=== PATIENT | female | born 1995 | race African-American/Black ===

== ENCOUNTER 2017-04-23 16:58 | Emergency (ER) | payer OTHER ==
--- NOTE | 2017-04-23 18:02 | ED ---
General Adult HPI - General Chief complaint: Recheck/Abnormal Lab/Rx Stated complaint: Test Time Seen by Provider: 04/23/17 17:21 Source: patient, RN notes reviewed Mode of arrival: ambulatory Limitations: no limitations - History of Present Illness Initial comments: Patient is a 21-year-old female presents to the emergency room for requested test. Patient states she can't afford a urine test so she came here. Patient is requesting a blood test to see if she is . Patient states she is one-week late on her menstrual cycle. Patient denies vaginal spotting. Patient denies abdominal pain. Patient denies nausea or vomiting. Patient denies headache or dizziness. Patient denies history of previous pregnancies. Patient denies any pain or burning during urination, trouble urinating or blood in urine. Patient denies taking any medications. - Related Data Previous Rx's Medication Instructions Recorded Ondansetron Odt [Zofran ODT] 4 mg PO Q8HR PRN #20 tab 07/10/16 Allergies Allergy/AdvReac Type Severity Reaction Status Date / Time No Known Allergies Allergy Verified 04/23/17 17:15 Review of Systems ROS Statement: Those systems with pertinent positive or pertinent negative responses have been documented in the HPI. ROS Other: All systems not noted in ROS Statement are negative. Past Medical History Past Medical History: No Reported History History of Any Multi-Drug Resistant Organisms: None Reported Past Surgical History: No Surgical Hx Reported Past Psychological History: Anxiety Smoking Status: Current every day smoker Past Alcohol Use History: None Reported Past Drug Use History: None Reported General Exam - General Exam Comments Initial Comments: Sitting in exam room, no acute distress. Limitations: no limitations General appearance: alert, in no apparent distress Head exam: Present: atraumatic, normocephalic, normal inspection Eye exam: Present: normal appearance ENT exam: Present: normal exam Neck exam: Present: normal inspection Respiratory exam: Present: normal lung sounds bilaterally. Absent: respiratory distress Cardiovascular Exam: Present: regular rate, normal rhythm, normal heart sounds GI/Abdominal exam: Present: soft, normal bowel sounds. Absent: distended, tenderness, guarding, rebound, rigid Extremities exam: Present: normal inspection Back exam: Present: normal inspection Neurological exam: Present: alert, oriented X3, CN II-XII intact, normal gait Psychiatric exam: Present: normal affect, normal mood Skin exam: Present: warm, dry, intact, normal color. Absent: rash Course Vital Signs 04/23/17 04/23/17 17:13 19:40 Temperature 98.1 F 97.8 F Pulse Rate 79 87 Respiratory 20 16 Rate Blood Pressure 118/69 121/68 O2 Sat by Pulse 99 99 Oximetry Medical Decision Making - Medical Decision Making Patient is a 21-year-old female presents to the emergency room for evaluation of test. Patient requested a blood test for . I did agree to urine test. Urine test is negative. Advised patient to follow-up with [facility]. Return parameters discussed. Case discussed with Dr. Arguelles. - Lab Data Lab Results 04/23/17 04/23/17 Range/Units 18:40 18:40 Urine Color Yellow Urine Appearance Cloudy H (Clear) Urine pH 5.5 (5.0-8.0) Ur Specific [place] 1.032 (1.001-1.035) Urine Protein 1+ H (Negative) Urine Glucose (UA) Negative (Negative) Urine Ketones Negative (Negative) Urine Blood Negative (Negative) Urine Nitrite Negative (Negative) Urine Bilirubin Negative (Negative) Urine Urobilinogen 2.0 (<2.0) mg/dL Ur Leukocyte Esterase Moderate H (Negative) Urine WBC 4 (0-5) /hpf Ur Squamous Epith Cells 18 H (0-4) /hpf Urine Mucus Few H (None) /hpf Urine HCG, Qual Not Detected (Not Detectd) Disposition Clinical Impression: Encounter for test Disposition: HOME SELF-CARE Condition: Good Additional Instructions: Please follow-up with [facility] or primary care provider. If any new symptom arises or symptoms worsen, return to ER as soon as possible. Referrals: Helena Velasquez DO [Primary Care Provider] - 1-2 days Time of Disposition: 19:37
[2017-04-23 18:58] LABS: Appearance,Urine Cloudy (Clear); Bilirubin,Urine Negative (Negative); Glucose,Urine (UA) Negative (Negative); Ketones,Urine Negative (Negative); Leukocyte Esterase,Urine Moderate (Negative); Mucus,Urine Few /hpf; Nitrite,Urine Negative (Negative); PH, Urine 5.5 (5.0-8.0); Particle Count 11512; Protein,Urine 1+ (Negative); Specific Gravity,Urine 1.032 (1.001-1.035); Squamous Epithelial Cell,Urine 18 /hpf (0-4); UA Billing (MACRO vs. MICRO) MICRO; WBC,Urine 4 /hpf (0-5)
[2017-04-23 19:48] VITALS: BP 121/68; PULSE 87; RESP 16; TEMP 97.8
== END 2017-04-23 19:40 | disposition home or self-care (01) ==
LOC: EC 16:58
DX: Z32.02 Encounter for pregnancy test, result negative (principal); F17.200 Nicotine dependence, unspecified, uncomplicated
CPT/HCPCS: 81001; 81025; 99282

== ENCOUNTER → 2017-12-29 | Outpatient (CLI) | payer OTHER ==
--- NOTE | 2017-12-29 16:54 | US ---
EXAMINATION TYPE: US transvaginal DATE OF EXAM: 12/29/2017 COMPARISON: NONE CLINICAL HISTORY: N92.1 irregular menses. cycles are lasting 3 days and very light, ongoing for a few months now TECHNIQUE: TV Date of LMP: 12/21/2017 EXAM MEASUREMENTS: Uterus: 6.9 x 2.7 x 3.2 cm Endometrial Stripe: 0.4 cm Right Ovary: 2.4 x 1.9 x 2.7 cm Left Ovary: 2.3 x 2.2 x 2.1 cm *patient was very tense during exam* 1. Uterus: Anteverted wnl 2. Endometrium: wnl 3. Right Ovary: follicles seen under 1cm 4. Left Ovary: follicles seen under 1cm 5. Bilateral Adnexa: wnl 6. Posterior cul-de-sac: wnl IMPRESSION: 1. No acute changes.
== END | disposition home or self-care (01) ==
LOC: RADUSWWP 16:16
PROVIDERS: ATTEND Family Medicine
DX: N92.1 Excessive and frequent menstruation with irregular cycle (principal)
CPT/HCPCS: 76830

== ENCOUNTER 2018-04-07 13:59 | Emergency (ER) | payer OTHER ==
[2018-04-07 14:18] VITALS: BP 108/64; PULSE 74; RESP 18; TEMP 98.6
--- NOTE | 2018-04-07 14:36 | ED ---
General Adult HPI - General Chief complaint: Upper Respiratory Infection Stated complaint: Upper Respiratory Infection Time Seen by Provider: 04/07/18 14:25 Source: patient Mode of arrival: ambulatory Limitations: no limitations - History of Present Illness Initial comments: This 22-year-old -[place] female presents with a complaint of some nasal congestion. It is been present for approximately one week. It has been associated with a cough which is worse when laying down flat. She's been taken some Tylenol sinus medication which does contain phenylephrine. She is instructed to stop taking this medication as it is class C. She denies any shortness of breath. She is approximately 7 weeks . She denies any known complications as far as but has not followed up with [employer] as of yet. She apparently has an appointment set up with [facility]. She denies any fevers or chills. She denies any other complaints or modifying factors. - Related Data Previous Rx's Medication Instructions Recorded Amoxicillin 500 mg PO Q8H #30 capsule 04/07/18 Allergies Allergy/AdvReac Type Severity Reaction Status Date / Time No Known Allergies Allergy Verified 04/07/18 14:18 Review of Systems ROS Statement: Those systems with pertinent positive or pertinent negative responses have been documented in the HPI. ROS Other: All systems not noted in ROS Statement are negative. Past Medical History Past Medical History: No Reported History History of Any Multi-Drug Resistant Organisms: None Reported Past Surgical History: No Surgical Hx Reported Past Psychological History: Anxiety Smoking Status: Current every day smoker Past Alcohol Use History: None Reported Past Drug Use History: None Reported General Exam - General Exam Comments Initial Comments: GENERAL: The patient is well nourished and well hydrated. VITAL SIGNS: Heart rate, blood pressure, respiratory rate reviewed as recorded in nurse's notes. EYES: Pupils are round and reactive. Extraocular movements are intact. No conjunctival / lid redness or swelling. ENT: No external evidence of injury, swelling, or ecchymosis. Airway is patent. Throat is clear. Moderate nasal congestion noted. NECK: Nontender. No swelling or evidence of injury. No subcutaneous emphysema. Trachea is midline. No thyroid mass. HEART: Regular rate and rhythm. Good peripheral pulses. LUNGS/CHEST: Breath sounds clear and equal bilaterally. No rales, rhonchi, or wheezes. No ecchymosis, subcutaneous emphysema, or tenderness. ABDOMEN: Abdomen soft without tenderness. No palpable masses or organomegaly. No peritoneal signs. No abdominal wall swelling or ecchymosis. EXTREMITIES: No extremity tenderness. Normal muscle tone and function. No thoracolumbar tenderness. NEUROLOGIC: Sensation is grossly intact. Cranial nerve exam reveals face is symmetrical, tongue is midline, speech is clear. SKIN: No abrasions or ecchymosis is noted. No induration or masses noted. PSYCHIATRIC: Alert and oriented. Appropriate behavior and judgment. Limitations: no limitations Course Vital Signs 04/07/18 14:15 Temperature 98.6 F Pulse Rate 74 Respiratory 18 Rate Blood Pressure 108/64 O2 Sat by Pulse 99 Oximetry Medical Decision Making - Medical Decision Making The patient was seen and examined. All diagnostics were reviewed. Appears that she does have a sinus infection. She will be treated for this. She is instructed to stop the Tylenol sinus and take Mucinex DM instead. She also may take Tylenol but she was instructed to avoid any ibuprofen or Naprosyn type containing products. She also will be prescribed some amoxicillin. Disposition Clinical Impression: Sinusitis, Disposition: HOME SELF-CARE Condition: Good Instructions: Sinusitis (ED), (ED) Additional Instructions: You should be able to take Mucinex DM safely during for cough and congestion. Prescriptions: Amoxicillin 500 mg PO Q8H #30 capsule Is patient prescribed a controlled substance at d/c from ED?: No Referrals: Helena Velasquez DO [Primary Care Provider] - 1-2 days Time of Disposition: 14:35
== END 2018-04-07 14:56 | disposition home or self-care (01) ==
LOC: EC 13:59
DX: O99.511 Diseases of the respiratory system complicating pregnancy, first trimester (principal); J32.9 Chronic sinusitis, unspecified; O99.331 Smoking (tobacco) complicating pregnancy, first trimester; F17.200 Nicotine dependence, unspecified, uncomplicated; Z3A.01 Less than 8 weeks gestation of pregnancy
CPT/HCPCS: 99283

== ENCOUNTER 2018-04-18 18:31 | Emergency (ER) | payer OTHER ==
--- NOTE | 2018-04-18 19:26 | ED ---
Female Urogenital HPI - General Chief complaint: Vaginal Bleeding Stated complaint: 9wks preg/spotting Time Seen by Provider: 04/18/18 19:07 Source: patient, RN notes reviewed, old records reviewed Mode of arrival: ambulatory Limitations: no limitations - History of Present Illness Initial comments: This Patient is a 22-year-old female presents to the emergency department today chief complaint of vaginal spotting. She reports she is approximately 8 weeks . She had an ultrasound earlier today at [facility] clinic. 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 Patient reports that she is having some left-sided abdominal cramping. Patient denies any dysuria, denies any nausea or vomiting. She reports that she had light spotting. This is her first . - Related Data Home Medications Medication Instructions Recorded Confirmed Pnv No.95/Ferrous Fum/Folic AC 1 tab PO BID 04/18/18 04/18/18 [ Multivitamin Tablet] Allergies Allergy/AdvReac Type Severity Reaction Status Date / Time No Known Allergies Allergy Verified 04/18/18 19:12 Review of Systems ROS Statement: Those systems with pertinent positive or pertinent negative responses have been documented in the HPI. ROS Other: All systems not noted in ROS Statement are negative. Past Medical History Past Medical History: No Reported History History of Any Multi-Drug Resistant Organisms: None Reported Past Surgical History: No Surgical Hx Reported Past Psychological History: Anxiety Smoking Status: Former smoker Past Alcohol Use History: None Reported Past Drug Use History: None Reported General Exam - General Exam Comments Initial Comments: 22-year-old female. Alert and oriented. No significant distress. Limitations: no limitations General appearance: alert, in no apparent distress Head exam: Present: atraumatic, normocephalic, normal inspection Eye exam: Present: normal appearance, PERRL, EOMI. Absent: scleral icterus, conjunctival injection, periorbital swelling ENT exam: Present: normal exam, mucous membranes moist Neck exam: Present: normal inspection. Absent: tenderness, meningismus, lymphadenopathy Respiratory exam: Present: normal lung sounds bilaterally. Absent: respiratory distress, wheezes, rales, rhonchi, stridor Cardiovascular Exam: Present: regular rate, normal rhythm, normal heart sounds. Absent: systolic murmur, diastolic murmur, rubs, gallop, clicks GI/Abdominal exam: Present: soft, normal bowel sounds. Absent: distended, tenderness, guarding, rebound, rigid Extremities exam: Present: normal inspection, full ROM, normal capillary refill. Absent: tenderness, pedal edema, joint swelling, calf tenderness Back exam: Present: normal inspection Neurological exam: Present: alert, oriented X3, CN II-XII intact Psychiatric exam: Present: normal affect, normal mood Skin exam: Present: warm, dry, intact, normal color. Absent: rash Course Vital Signs 04/18/18 18:36 Temperature 98.5 F Pulse Rate 101 H Respiratory 20 Rate Blood Pressure 111/68 O2 Sat by Pulse 100 Oximetry Medical Decision Making - Medical Decision Making 22-year-old female presents emergency room chief complaint of vaginal spotting. 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 patient states that since that she's been having some minor spotting. complains muscle cramping. repeat ultrasound shows evidence of iup 6 weeks. no evidence of demise. patient is a+ blood type. hcg level [id number]. pelvic exam shows no significant bleeding. discussed concern for possibility of a threatened miscarriage with responding. she'll repeat her hcg in 2 days. patient understands treatment plan will comply. return parameters were discussed. - Lab Data Lab Results 04/18/18 04/18/18 04/18/18 Range/Units 19:34 19:34 19:34 HCG, Quant 73848.4 mIU/mL Urine Color Urine Appearance (Clear) Urine pH (5.0-8.0) Ur Specific [place] (1.001-1.035) Urine Protein (Negative) Urine Glucose (UA) (Negative) Urine Ketones (Negative) Urine Blood (Negative) Urine Nitrite (Negative) Urine Bilirubin (Negative) Urine Urobilinogen (<2.0) mg/dL Ur Leukocyte Esterase (Negative) Urine RBC (0-5) /hpf Urine WBC (0-5) /hpf Ur Squamous Epith Cells (0-4) /hpf Urine Mucus (None) /hpf Urine HCG, Qual Detected (Not Detectd) Blood Type A Positive Blood Type Recheck No 04/18/18 Range/Units 19:34 HCG, Quant mIU/mL Urine Color Yellow Urine Appearance Clear (Clear) Urine pH 6.5 (5.0-8.0) Ur Specific [place] 1.025 (1.001-1.035) Urine Protein Trace H (Negative) Urine Glucose (UA) Negative (Negative) Urine Ketones Negative (Negative) Urine Blood Moderate H (Negative) Urine Nitrite Negative (Negative) Urine Bilirubin Negative (Negative) Urine Urobilinogen 2.0 (<2.0) mg/dL Ur Leukocyte Esterase Negative (Negative) Urine RBC <1 (0-5) /hpf Urine WBC 1 (0-5) /hpf Ur Squamous Epith Cells 1 (0-4) /hpf Urine Mucus Occasional H (None) /hpf Urine HCG, Qual (Not Detectd) Blood Type Blood Type Recheck - Radiology Data Radiology results: report reviewed Sounds a viable IUP. Correlating with of 6 weeks and 3 days. Estimated delivery was 12/09/2017. Heart rate was 154 Disposition Clinical Impression: Threatened Disposition: HOME SELF-CARE Condition: Good Instructions: Threatened Miscarriage (ED) Additional Instructions: Patient advised to follow-up and repeat lab work in 2 days. Return to emergency department if any alarming signs or symptoms occur. Is patient prescribed a controlled substance at d/c from ED?: No When asked, does pt state using other controlled substances?: No If prescribed controlled substance>3 days was MAPS reviewed?: No If opioid is for acute pain is fill amount 7 days or less?: No If Rx opioid, was Start Talking consent form obtained?: No Referrals: Helena Velasquez DO [Primary Care Provider] - 1-2 days Time of Disposition: 21:24
[2018-04-18 19:59] LABS: Appearance,Urine Clear (Clear); Bilirubin,Urine Negative (Negative); Blood,Urine Moderate (Negative); Color,Urine Yellow; Glucose,Urine (UA) Negative (Negative); Ketones,Urine Negative (Negative); Leukocyte Esterase,Urine Negative (Negative); Mucus,Urine Occasional /hpf; Nitrite,Urine Negative (Negative); PH, Urine 6.5 (5.0-8.0); Protein,Urine Trace (Negative); RBC,Urine <1 /hpf (0-5); Specific Gravity,Urine 1.025 (1.001-1.035); Squamous Epithelial Cell,Urine 1 /hpf (0-4); WBC,Urine 1 /hpf (0-5)
--- NOTE | 2018-04-18 20:34 | US ---
EXAMINATION TYPE: Transabdominal DATE OF EXAM: 02/21/18 COMPARISON: NONE CLINICAL HISTORY: Pain. Spotting and cramping. EXAM PERFORMED: Transabdominal (TA) EXAM MEASUREMENTS: GESTATIONAL AGE / DATING Physician Established: Not yet established Dates by LMP: (8 weeks/6 days) EDC: 11/22/2018 Dates by First Scan: No previous this is first scan Dates by Current Scan for: (6 weeks/3 days) EDC: 12/09/2018 MATERNAL ANATOMY Uterus: 8.4 x 5.0 x 7.0 cm Right Ovary: 2.9 x 2.0 x 2.2 cm Left Ovary: Obscured by overlying bowl gas. Post CDS / Adnexa: wnl Presence of free fluid: no Presence of corpus luteal cyst: no Presence of subchorionic bleed: no GESTATION / SURVEY CRL: 0.6cm (6 weeks/3 days) Yolk Sac (normal less than 6mm): 4 mm Heart Rate: 154 bpm Rhythm: Normal IUP: Viable IUP Beta HcG (if available): Not available at this time Viable IUP 6 wks 3 days MARGARITA 12/09/2018 HR 154 BPM. Fluid visualized in vaginal canal. IMPRESSION: Single viable intrauterine corresponding to ultrasound age 6 weeks 3 days with estimated da te of delivery 12/09/2018. Follow-up as indicated.
[2018-04-18 21:44] VITALS: BP 114/71; PULSE 76; RESP 18; TEMP 98
== END 2018-04-18 21:44 | disposition home or self-care (01) ==
LOC: EC 18:31
DX: O20.0 Threatened abortion (principal); Z87.891 Personal history of nicotine dependence; Z3A.01 Less than 8 weeks gestation of pregnancy
CPT/HCPCS: 36415; 76801; 81001; 81025; 84702; 86900; 86901; 99284

== ENCOUNTER → 2018-04-20 | Outpatient (CLI) | payer OTHER | END | disposition home or self-care (01) | LOC: LABWHC1 12:20 | PROVIDERS: ATTEND Physician Assistant Medical | DX: O20.0 Threatened abortion (principal) | CPT/HCPCS: 36415; 84702 ==

== ENCOUNTER 2018-12-09 16:21 | Inpatient (IN) | payer OTHER ==
[2018-12-14] MEDS ORDERED: METHYLERGONOVINE 0.2 MG/ML 1 ML AMP IM PRN (06:16)
[2018-12-14] MEDS ORDERED: CARBOPROST TROMETHAMINE 250 MCG/ML 1 ML AMP IM PRN (06:16)
[2018-12-14] MEDS ORDERED: TERBUTALINE 1 MG/ML VIAL SQ PRN (06:16)
[2018-12-14] MEDS ORDERED: OXYTOCIN 10 UNIT/ML 1 ML VIAL IM PRN (06:16)
[2018-12-14] MEDS ORDERED: AMPICILLIN 2,000 MG in SODIUM CHLORIDE 0.9% 100 ML IVPB STA (06:16)
[2018-12-14] MEDS ORDERED: LIDOCAINE 0.5% (PF) 5 MG/ML (50 ML SDV) SQ PRN (06:16)
[2018-12-14 06:30] VITALS: BMI 25.1
[2018-12-14] MEDS: LACTATED RINGERS 1,000 ML IV SCH ×3 (06:33→14:39)
[2018-12-14] MEDS: OXYTOCIN 20 UNITS/1000 ML NS 1,000 ML IV SCH (06:33)
[2018-12-14 07:03] LABS: Basophils % (A) 0 %; Eosinophils # (A) 0.1 k/uL (0-0.7); Eosinophils % (A) 2 %; HCT 33.2 % (34.0-46.0); HGB 11.3 gm/dL (11.4-16.0); Lymphocytes % (A) 16 %; MCH 32.4 pg (25.0-35.0); MCHC 34.2 g/dL (31.0-37.0); MCV 94.7 fL (80.0-100.0); Mean Platelet Volume 8.8; Monocytes # (A) 0.3 k/uL (0-1.0); Monocytes % (A) 5 %; Neutrophils # (A) 4.9 k/uL (1.3-7.7); Neutrophils % (A) 76 %; Platelet Count 119 k/uL (150-450); RDW 13.5 % (11.5-15.5); WBC 6.5 k/uL (3.8-10.6)
[2018-12-14] MEDS: BUTORPHANOL 1 MG/ML 1 ML VIAL IV PRN ×2 (08:40→10:45)
[2018-12-14] MEDS: AMPICILLIN 1,000 MG in SODIUM CHLORIDE 0.9% 50 ML IVPB SCH ×2 (10:42→14:36)
[2018-12-14] MEDS ORDERED: SODIUM CHLORIDE 0.9% 100 ML BAG ONE (12:56)
[2018-12-14] MEDS ORDERED: ROPIVACAINE 5MG/ML 20ML VIAL ONE (12:56)
[2018-12-14] MEDS ORDERED: fentaNYL (PF) 50 MCG/ML 5 ML AMP ONE (12:56)
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
--- NOTE | 2018-12-14 18:00 | P.PROBDLV ---
Vaginal Delivery Note - . Vaginal Delivery Note: 23-year-old presented at 40 weeks and 5 days for induction of labor. Her cervix was 1 cm, 70% effaced, -2 station. She is cesia irregularly. heart tones [id number] with moderate variability and reactive. Pitocin was started. Amniotomy was performed at 07 41 and light meconium fluid noted. When she was uncomfortable she did get 2 doses of Stadol. She was 4 cm dilated and got her epidural: Comfortable with this. Her cervix was completely dilated at 1705. She pushed, I brought the head to a crown. At this point the heart tones went down to 50 and she is having difficulty pushing. I did make a episiotomy and confirmed position. I placed a vacuum on the head and guided the baby out. 2 pulls, one pop-off. Head delivered MYRIAM, anterior shoulder delivered gentle downward guidance followed by posterior shoulder and rest of body. Nose and mouth bulb suctioned, cord clamped and cut, handed off to waiting nurses. Apgars pending. Weight 5 lbs. 9 oz. Placenta delivered spontaneously, intact with three-vessel cord at 1737. Vagina, cervix , perineum inspected. second-degree midline episiotomy was repaired with 20 and 3-0 Vicryl. Estimated blood loss 200 mL.
[2018-12-15] MEDS ORDERED: SIMETHICONE 80 MG CHEWABLE PO PRN (07:37)
[2018-12-15] MEDS ORDERED: BENZOCAINE/MENTHOL SPRAY 1 GM/SPRAY AEROSOL TOPICAL PRN (07:37)
[2018-12-15] MEDS ORDERED: LANOLIN CREAM 5 GM TUBE TOPICAL PRN (07:37)
[2018-12-15] MEDS ORDERED: WITCH HAZEL 1 EACH MED..PAD TOPICAL PRN (07:37)
[2018-12-15] MEDS ORDERED: diphenhydrAMINE 25 MG CAP PO PRN (07:37)
[2018-12-15] MEDS ORDERED: ACETAMINOPHEN TAB 325 MG TAB PO PRN (07:37)
[2018-12-15] MEDS ORDERED: diphenhydrAMINE 50 MG CAP PO PRN (07:37)
[2018-12-15] MEDS ORDERED: HYDROCORTISONE 2.5% RECTAL CREAM 30 GM TUBE RECTAL PRN (07:37)
[2018-12-15] MEDS ORDERED: DIPH,PERTUS(ACELL)TETVAC-LF 0.5 ML VIAL IM ONE (07:39)
[2018-12-15] MEDS: IBUPROFEN 600 MG TAB PO PRN ×2 (08:23→17:11)
[2018-12-15] MEDS: SENNOSIDES-DOCUSATE SODIUM 1 EACH TAB PO SCH ×2 (08:25→20:41)
--- NOTE | 2018-12-15 08:54 | P.PNOBGVD ---
Subjective - Subjective Principal diagnosis: S/P NVD PPD #1 Interval history: Patient seen and examined. Her bleeding is slowing down. Denies nausea, vomiting, chest pain, shortness of breath or calf pain. Patient reports: Reports appetite normal, Reports voiding normally, Reports pain well controlled, Reports ambulating normally Objective - Latest Vital Signs Latest vital signs: Vital Signs Temp Pulse Resp BP Pulse Ox 12/15/18 07:45 98.7 F 88 14 99/57 12/15/18 04:00 98.1 F 95 16 107/65 12/15/18 00:00 98.2 F 105 H 16 105/59 12/14/18 20:00 98.7 F 88 18 122/61 100 12/14/18 19:30 98.6 F 102 H 18 133/71 98 12/14/18 18:45 105 H 16 115/69 12/14/18 18:30 114 H 16 111/70 12/14/18 18:15 108 H 16 110/64 12/14/18 18:00 108 H 16 104/59 12/14/18 17:45 97.7 F 103 H 16 95/54 Intake and Output 12/14/18 12/15/18 12/15/18 22:59 06:59 14:59 Intake Total 60 Output Total 100 Balance -40 Intake: IV 60 Output: Urine 100 Straight 100 Other: # Voids 1 - Exam Lungs: bilateral: normal Chest: Normal S1, Normal S2 Extremities: Present: normal Abdomen: Present: normal appearance, soft Uterus: Present: normal, firm Assessment and Plan (1) Normal labor Current Visit: Yes Status: Resolved Code(s): O80 - ENCOUNTER FOR FULL-TERM UNCOMPLICATED DELIVERY; Z37.9 - OUTCOME OF DELIVERY, UNSPECIFIED SNOMED Code(s ): 42703937 (2) Normal vaginal delivery Current Visit: Yes Status: Acute Code(s): O80 - ENCOUNTER FOR FULL-TERM UNCOMPLICATED DELIVERY SNOMED Code(s): 86044858 Plan: 1. Continue care
[2018-12-15] MEDS: OXYTOCIN 20 UNITS/1000 ML NS 1,000 ML IV SCH (20:40)
[2018-12-16 00:16] VITALS: RESP 18
[2018-12-16 07:18] LABS: Basophils % (A) 0 %; Eosinophils # (A) 0.2 k/uL (0-0.7); Eosinophils % (A) 2 %; HCT 30.9 % (34.0-46.0); Lymphocytes # (A) 1.7 k/uL (1.0-4.8); Lymphocytes % (A) 15 %; MCHC 32.3 g/dL (31.0-37.0); MCV 96.2 fL (80.0-100.0); Mean Platelet Volume 7.7; Monocytes # (A) 0.5 k/uL (0-1.0); Monocytes % (A) 4 %; Neutrophils # (A) 8.7 k/uL (1.3-7.7); Neutrophils % (A) 77 %; Platelet Count 128 k/uL (150-450); RBC 3.21 m/uL (3.80-5.40); RDW 13.6 % (11.5-15.5); WBC 11.3 k/uL (3.8-10.6)
[2018-12-16 08:06] VITALS: BP 103/56; PULSE 69; TEMP 98
--- NOTE | 2018-12-16 08:59 | P.DS ---
Providers Date of admission: 12/14/18 05:59 Expected date of discharge: 12/16/18 Attending physician: aTnvi Cota Primary care physician: Stated None Hospital Course: Overall patient is doing well day 2. She is involuting, voiding, and she is tolerating her diet. She voices no complaints other than some abdominal cramping. Her vital signs are stable and she is afebrile. Heart regular, lungs clear, extremities without pain. Abdomen is soft uterus is firm below the umbilicus and lochia is reported to be light. Assessment post day 2. Plan discharged home follow up with Dr. Cota in 6 weeks. Prescription for Senokot was sent to the pharmacy per her request. Patient Condition at Discharge: Good Plan - Discharge Summary New Discharge Prescriptions: New Sennosides-Docusate Sodium [Senokot-S] 1 tab PO BID #20 tablet No Action Pnv No.95/Ferrous Fum/Folic AC [ Multivitamin Tablet] 1 tab PO BID Discharge Medication List Pnv No.95/Ferrous Fum/Folic AC [ Multivitamin Tablet] 1 tab PO BID 04/18 [History] Sennosides-Docusate Sodium [Senokot-S] 1 tab PO BID #20 tablet 12/16/18 [Rx] Follow up Appointment(s)/Referral(s): Tanvi Cota DO [Doctor of Osteopathic Medicine] - 6 Weeks Activity/Diet/Wound Care/Special Instructions: No heavy lifting, limit stairs and driving, and pelvic rest. If any high temperatures, heavy bleeding, or severe pain call my office Discharge Disposition: HOME SELF-CARE
== END 2018-12-16 12:05 | disposition home or self-care (01) | DRG 807 ==
LOC: MERGE 16:21 → 4FBP 12-14 05:59
PROVIDERS: ADMIT Obstetrics & Gynecology; ATTEND Obstetrics & Gynecology
PROC: 10D07Z6 Extraction of Products of Conception, Vacuum, Via Natural or Artificial Opening (ICD-10-PCS; principal; 2018-12-14)
PROC: 10907ZC Drainage of Amniotic Fluid, Therapeutic from Products of Conception, Via Natural or Artificial Opening (ICD-10-PCS; 2018-12-14)
PROC: 3E033VJ Introduction of Other Hormone into Peripheral Vein, Percutaneous Approach (ICD-10-PCS; 2018-12-14)
PROC: 00HU33Z Insertion of Infusion Device into Spinal Canal, Percutaneous Approach (ICD-10-PCS; 2018-12-14)
PROC: 3E0R3BZ Introduction of Anesthetic Agent into Spinal Canal, Percutaneous Approach (ICD-10-PCS; 2018-12-14)
PROC: 0W8NXZZ Division of Female Perineum, External Approach (ICD-10-PCS; 2018-12-14)
DX: O77.0 Labor and delivery complicated by meconium in amniotic fluid (principal); Z37.0 Single live birth; O99.344 Other mental disorders complicating childbirth; F41.9 Anxiety disorder, unspecified; O99.824 Streptococcus B carrier state complicating childbirth; O99.62 Diseases of the digestive system complicating childbirth; K21.9 Gastro-esophageal reflux disease without esophagitis; Z3A.40 40 weeks gestation of pregnancy; Z83.3 Family history of diabetes mellitus
CPT/HCPCS: 85025; 86850; 86900; 86901; 88307; 90715

== ENCOUNTER → 2020-05-06 | Outpatient (CLI) | payer OTHER ==
--- NOTE | 2020-05-06 15:45 | US ---
EXAMINATION TYPE: Transabdominal DATE OF EXAM: 05/06/2020 3:32 PM COMPARISON: NONE CLINICAL HISTORY: Z36 Confirm Dates. Confirm dates EXAM PERFORMED: Transabdominal (TA) EXAM MEASUREMENTS: GESTATIONAL AGE / DATING Physician Established: Not yet established Dates by LMP: (11 weeks/3 days) EDC: 11/22/2020 Dates by First Scan: No previous this is first scan Dates by Current Scan for: (11 weeks/6 days) EDC: 11/19/2020 MATERNAL ANATOMY Uterus: 9.3 x 8.6 x 9.3 Right Ovary: Obscured by bowel gas. Left Ovary: Obscured by bowel gas. Post CDS / Adnexa: wnl Presence of free fluid: no Presence of corpus luteal cyst: no Presence of subchorionic bleed: no GESTATION / SURVEY CRL: 5.1 cm (11 weeks/6 days) Heart Rate: 163 bpm Rhythm: Normal IUP: Viable IUP Beta HcG (if available): Not available at this time IMPRESSION: Single viable intrauterine with an estimated gestational age of 11 weeks 6 days and estimat ed date of confinement of 11/19/2020
== END | disposition home or self-care (01) ==
LOC: RADUSWWP 15:15
PROVIDERS: ATTEND Obstetrics & Gynecology
DX: Z36.9 Encounter for antenatal screening, unspecified (principal); Z3A.11 11 weeks gestation of pregnancy
CPT/HCPCS: 76801

== ENCOUNTER 2020-08-17 12:10 | Emergency (ER) | payer OTHER ==
[2020-08-17 12:34] VITALS: BP 100/60; PULSE 84; RESP 18; TEMP 98.1
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
== END 2020-08-17 13:44 | disposition home or self-care (01) ==
LOC: EC 12:10
DX: H61.23 Impacted cerumen, bilateral (principal)
CPT/HCPCS: 69209; 99282

== ENCOUNTER 2020-11-20 01:35 | Inpatient (IN) | payer OTHER ==
[2020-11-20] MEDS: LACTATED RINGERS 1,000 ML IV SCH ×2 (03:19→07:12)
[2020-11-20 03:34] LABS: Basophils % (A) 0 %; Eosinophils # (A) 0.3 k/uL (0-0.7); Eosinophils % (A) 6 %; HCT 31.3 % (34.0-46.0); HGB 10.6 gm/dL (11.4-16.0); Lymphocytes # (A) 1.3 k/uL (1.0-4.8); Lymphocytes % (A) 22 %; MCH 31.9 pg (25.0-35.0); MCHC 33.8 g/dL (31.0-37.0); MCV 94.4 fL (80.0-100.0); Mean Platelet Volume 8.6; Monocytes # (A) 0.3 k/uL (0-1.0); Monocytes % (A) 5 %; Neutrophils # (A) 3.7 k/uL (1.3-7.7); Neutrophils % (A) 64 %; Platelet Count 121 k/uL (150-450); RBC 3.31 m/uL (3.80-5.40); RDW 13.4 % (11.5-15.5); WBC 5.7 k/uL (3.8-10.6)
--- NOTE | 2020-11-20 06:05 | P.HPOB ---
History of Present Illness H&P Date: 11/20/20 Chief Complaint: Contractions This patient is a 24-year-old 2 para 1 female estimated date of confinement 11/22/2020 estimated gestational age 39-5/7 weeks who presents to labor and delivery with complaints of contractions. Patient was 1 cm dilated in the office is now 4 cm dilated thought to be in active labor. Patient's care is per Dr. 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 This patient was referred to maternal- medicine earlier in the and the evaluation showed a male fetus with a 50% chance of being affected by Alexia syndrome. Patient was recommended to get an amniocentesis for testing however she did not return narrative for this and has not been back to maternal- medicine since. This syndrome is associated with increased risk of stillborn especially in male fetuses as well as other disorders including cardiomyopathy, skeletal growth delay and neutropenia. Review of Systems Genitourinary: Reports Menstruation: Reports amenorrhea Past Medical History Past Medical History: No Reported History Additional Past Medical History / Comment(s): Patient had a term vaginal delivery with Dr. Cota baby boy affected by Alexia syndrome History of Any Multi-Drug Resistant Organisms: None Reported Past Surgical History: No Surgical Hx Reported Past Anesthesia/Blood Transfusion Reactions: No Reported Reaction Past Psychological History: No Psychological Hx Reported Smoking Status: Never smoker Past Alcohol Use History: None Reported Past Drug Use History: None Reported - Past Family History Mother Family Medical History: Diabetes Mellitus Additional Family Medical History / Comment(s): Patient has a son with Alexia Syndrome Medications and Allergies Home Medications Medication Instructions Recorded Confirmed Type Pnv No.95/Ferrous Fum/Folic AC 1 tab PO BID 04/18/18 11/20/20 History [ Multivitamin Tablet] Sennosides-Docusate Sodium 1 tab PO BID #20 tablet 12/16/18 11/20/20 Rx [Senokot-S] Allergies Allergy/AdvReac Type Severity Reaction Status Date / Time No Known Allergies Allergy Verified 11/20/20 02:14 Exam Intake and Output 11/19/20 11/19/20 11/20/20 14:59 22:59 06:59 Other: Weight 73.028 kg - OBG Physical Exam Abdomen: bowel sounds normal, no diffuse tenderness, no bruit present, no guarding noted, no hepatomegaly, no splenomegaly, no mass Vulva: both: normal Vagina: normal moisture, no discharge Cervix: no lesion (Cervix is 4 cm dilated 80% effaced -2 station.), no discharge Uterus: enlarged Results blood work shows she is A positive, rubella nonimmune, RPR is nonreactive, hepatitis B is negative, group B strep was negative, maternity T 21 was normal 46 XY. Most recent ultrasound estimated weight at 6 lbs. 6 oz. Result Diagrams: 11/20/20 03:22 Abnormal Lab Results - Last 24 Hours (Table) 11/20/20 Range/Units 03:22 RBC 3.31 L (3.80-5.40) m/uL Hgb 10.6 L (11.4-16.0) gm/dL Hct 31.3 L (34.0-46.0) % Plt Count 121 L (150-450) k/uL Assessment and Plan Assessment: This is a 24-year-old 2 para 1 female 39 and I sevenths weeks gestation admitted to labor and delivery in early labor. Patient's been noncompliant with her high risk care. At this juncture we do not know whether or not this baby has Alexia Syndrome or not. I will alert wrapper stripper's as to the possibility of this disorder. She also has thick meconium-stained fluid and therefore we will alert anesthesia. At this point we anticipate vaginal delivery. (1) 39 weeks gestation of Current Visit: Yes Status: Acute Code(s): Z3A.39 - 39 WEEKS GESTATION OF SNOMED Code(s): 37369437 (2) Normal labor Current Visit: No Status: Resolved Code(s): O80 - ENCOUNTER FOR FULL-TERM UNCOMPLICATED DELIVERY; Z37.9 - OUTCOME OF DELIVERY, UNSPECIFIED SNOMED Code(s): 84826939 (3) Non-compliance Current Visit: Yes Status: Acute Code(s): Z91.19 - PATIENT'S NONCOMPLIANCE W OTH MEDICAL TREATMENT AND REGIMEN SNOMED Code(s): 1727408 (4) Meconium in amniotic fluid Current Visit: Yes Status: Acute Code(s): P96.83 - MECONIUM STAINING SNOMED Code(s): 955899082
[2020-11-20] MEDS ORDERED: OXYTOCIN 10 UNIT/ML 1 ML VIAL IM PRN (06:07)
[2020-11-20] MEDS ORDERED: CARBOPROST TROMETHAMINE 250 MCG/ML 1 ML AMP IM PRN (06:07)
[2020-11-20] MEDS ORDERED: LIDOCAINE 0.5% (PF) 5 MG/ML (50 ML SDV) SQ PRN (06:07)
[2020-11-20] MEDS ORDERED: METHYLERGONOVINE 0.2 MG/ML 1 ML AMP IM PRN (06:07)
[2020-11-20] MEDS ORDERED: TERBUTALINE 1 MG/ML VIAL SQ PRN (06:07)
[2020-11-20] MEDS ORDERED: LACTATED RINGERS 1,000 ML IV SCH (06:15)
[2020-11-20] MEDS ORDERED: CITRIC ACID-SODIUM CITRATE 15 ML CUP PO ONE (10:51)
--- NOTE | 2020-11-20 12:11 | P.MSEPDOC ---
Presenting Problems - Arrival Data Date of Arrival on Unit: 11/20/20 Time of Arrival on Unit: 05:30 Mode of Transport: Wheelchair - Complaint OB-Reason for Admission/Chief Complaint: Possible Onset of Labor Medical History - Information : 2 Para: 1 Term: 1 : 0 Abortions: Spontaneous or Elective: 0 Number of Living Children: 1 - Gestational Age Gestational Age by MARGARITA (wks/days): 39 Weeks and 5 Days Review of Systems - Review of Systems Constitutional: No problems Breast: No problems ENT: No problems Cardiovascular: No problems Respiratory: No problems Gastrointestinal: No problems Genitourinary: No problems Musculoskeletal: No problems Neurological: No problems Skin: No problems Vital Signs - Temperature Temperature: 98.2 F Temperature Source: Tympanic - Pulse Left Brachial Pulse Rate: 82 Pulse Assessment Method: Automatic Cuff - Respirations Respiratory Rate: 20 Oxygen Delivery Method: Room Air - Blood Pressure Left Arm Blood Pressure: 106/61 Blood Pressure Mean: 76 Blood Pressure Source: Automatic Cuff Physician Notification (Pre) - Physician Notified New Order Received: Yes Disposition - Disposition OB Disposition: Admit, LDRP Suite I agree with the RN Medical Screening Exam: Yes Risk & Benefit of care provided described in d/c instruction: Yes Diagnosis: ENCOUNTER FOR FULL-TERM UNCOMPLICATED DELIVERY
[2020-11-20] MEDS ORDERED: CITRIC ACID-SODIUM CITRATE 15 ML CUP PO SCH (12:30)
[2020-11-20 12:46] VITALS: RESP 16
--- NOTE | 2020-11-20 13:18 | P.PROBDLV ---
Vaginal Delivery Note - . Vaginal Delivery Note: Please see history and physical for details of patient's admission. When I took over from Dr. Varela, the patient was about 7 cm and cesia on her own. Oxytocin was not started. She progressed to approximately 8-9 cm and did have a few decelerations that did very turned to baseline. She was also starting to have some decreased variability and the heart rate. Any time she was examined the heart rate did drop. At this point the nurse notified me and we decided to proceed with section due to the intolerance of labor. Before I could get over to the hospita to yet ready to do the section, I was called and the patient was noted to be complete and . Heart tones and actually improved in variability at this time and she was allowed to push. She push the 's head to a crown. Neck she pushed the infant's head across the perineum followed by the anterior shoulder. Nose and mouth were bulb suctioned at the perineum. Thin meconium was noted. With one further push, the remainder the easily delivered and was placed on mother's abdomen. Cord was clamped and cut and brisk cry was noted immediately. was then taken to warmer for evaluation by nursing staff. City Maintenance Manager was also called to the room along with CITIZENSHIP TEACHER due to the meconium. They both arrived shortly after delivery and proceeded to examine the baby. A viable male was noted with scores of 2 at 1 minute 1 at 5 minutes and 1 at 10 minutes. weight was 6 lbs. 14 oz. or 3120 g. Infant was taken to the nursery shortly after stabilization. Placenta delivered shortly thereafter, intact, with a three-vessel cord. Uterus contracted fairly well after oxytocin was given and uterine massage was carried out. Inspection of the perineum revealed a small first-degree perineal laceration on the left periurethral area. This area was anesthetized with 1% lidocaine and then sutured with 3-0 Vicryl suture in a running locked fashion. A few pieces of membranous tissue were removed with a gloved hand in the intrauterine cavity. Uterus did contract well after this. Estimated blood loss is approximately 200 mL's. Mother is in stable condition and baby is taken to level I nursery for further evaluation. Patient is advised of baby's status at this time.
[2020-11-20 16:27] VITALS: BP 102/55; PULSE 85; TEMP 98.8
--- NOTE | 2020-11-28 16:28 | P.DS ---
Providers Date of admission: 11/20/20 05:28 Expected date of discharge: 11/20/20 Attending physician: Keon Varela Primary care physician: Stated None Hospital Course: This is a 24-year-old female who presented in active labor. Please see dictated history and physical for details of patient's impression and delivery note. Within about 3 hours after delivery, the patient stated she had no childcare for her 2-year-old home and needed to leave. In addition her baby had been transported to [facility]. Her bleeding was minimal and her vital signs were stable. She was discharged with instructions to follow up with Dr. Cota for her appointment and she can take [id number] Motrin or Tylenol as needed for cramping or pain. She was instructed to call the office if she has any further questions or concerns prior to her appointment time. Procedures: Spontaneous vaginal delivery on 11/20/2021 Patient Condition at Discharge: Good Plan - Discharge Summary New Discharge Prescriptions: No Action Pnv No.95/Ferrous Fum/Folic AC [ Multivitamin Tablet] 1 tab PO BID Sennosides-Docusate Sodium [Senokot-S] 1 tab PO BID #20 tablet Discharge Medication List Pnv No.95/Ferrous Fum/Folic AC [ Multivitamin Tablet] 1 tab PO BID 04/18/18 [History] Sennosides-Docusate Sodium [Senokot-S] 1 tab PO BID #20 tablet 12/16/18 [Rx] Follow up Appointment(s)/Referral(s): Tanvi Cota DO [Doctor of Osteopathic Medicine] - 6 Weeks Activity/Diet/Wound Care/Special Instructions: Instructions 1. Do not begin any exercise program for 3 weeks. 2. Do not resume sexual relations for 3 weeks or longer if uncomfortable. 3. You may take tub baths or showers at any time. 4. You may use tampons if desired after 3 weeks. 5. Keep the area of episiotomy (stitches) clean and dry. 6. If you are not nursing, wear a good fitting, supportive bra during the day and limit fluid intake for at least 1 week to prevent breast engorgement. 7. Call the office, [phone], within the next week to make appointment for your 6 week checkup if it has not already been made. 8. Report any of the following occurrences to the doctor promptly: a. Heavy, excessive bleeding b. Chills, fever c. Burning or frequency of urination d. Pain or redness and breasts if nursing e. Increasing pain or swelling in episiotomy (stitches). In addition to the above instructions, the following additional should be followed: 1. No heavy lifting or straining (exercising) until after 6 week checkup. 2. Keep abdominal incision clean and dry: You may wear a dressing if more comfortable. 3. Make office appointment for 10 days after going home or as instructed by her doctor. Discharge Disposition: HOME SELF-CARE
== END 2020-11-20 16:31 | disposition home or self-care (01) | DRG 807 ==
LOC: FBPOP 01:35 → 4FBP 05:28
PROVIDERS: ADMIT Obstetrics & Gynecology; ATTEND Obstetrics & Gynecology
PROC: 10E0XZZ Delivery of Products of Conception, External Approach (ICD-10-PCS; principal; 2020-11-20)
PROC: 0HQ9XZZ Repair Perineum Skin, External Approach (ICD-10-PCS; principal; 2020-11-20)
DX: O70.0 First degree perineal laceration during delivery (principal); Z37.0 Single live birth; O77.0 Labor and delivery complicated by meconium in amniotic fluid; O76 Abnormality in fetal heart rate and rhythm complicating labor and delivery; Z3A.39 39 weeks gestation of pregnancy; Z83.3 Family history of diabetes mellitus; Z91.19 Patient's noncompliance with other medical treatment and regimen
CPT/HCPCS: 59025; 85025; 86850; 86900; 86901; 88307; 96360; 96361; 99214